=== PATIENT | female | born 1985 | race Caucasian/White ===

== ENCOUNTER 2017-02-20 12:35 | Observation (INO) | payer OTHER ==
[~2017-02-20] VITALS: Ht 162 cm; Wt 78.5 kg
[2017-02-20] MEDS ORDERED: PREN1TAB80 PO (13:10)
[2017-02-20] MEDS ORDERED: CALC-51 PO (13:11)
[2017-02-20 13:14] VITALS: BP 105/55
[2017-02-20 13:35] LABS: BASOPHILS % (AUTO) 1.3 % (0.0-2.0); EOSINOPHILS % (AUTO) 0.6 % (1.0-6.0); HEMATOCRIT 35.2 % (36-46); HEMOGLOBIN 12.1 g/dL (12.0-16.0); LYMPHOCYTES # (AUTO) 1.7 K/uL (1.0-4.8); LYMPHOCYTES % (AUTO) 21.4 % (22.0-44.0); MEAN CORPUSCULAR HEMOGLOBIN 31.7 pg (26.0-34.0); MEAN CORPUSCULAR HGB CONC 34.4 G/dL (31.0-37.0); MEAN CORPUSCULAR VOLUME 92 fL (80-100); MONOCYTES # (AUTO) 0.6 K/uL (0.1-1.0); MONOCYTES % (AUTO) 7.6 % (2.0-9.0); NEUTROPHILS # (AUTO) 5.4 K/uL (1.8-7.7); NEUTROPHILS % (AUTO) 69.1 % (40.0-70.0); RED BLOOD CELL COUNT(AUTO) 3.83 MIL/uL (4.00-5.20); RED CELL DISTRIBUTION WIDTH 13.2 % (11.5-14.5); WHITE BLOOD COUNT (AUTO) 7.9 K/uL (4.5-11.0)
[2017-02-20 13:47] LABS: ANION GAP 9 mmol/L (8-16); CALCIUM, TOTAL 8.8 mg/dL (8.8-10.5); CARBON DIOXIDE 24 mmol/L (22-29); CHLORIDE 104 mmol/L (98-107); CREATININE 0.66 mg/dL (0.60-1.30); GLOMERULAR FILTR. RATE CALC > 60 mL/min (>60); POTASSIUM 3.9 mmol/L (3.5-5.1); SODIUM SERUM 137 mmol/L (136-145); UREA NITROGEN, BLOOD 4 mg/dL (7-18)
[2017-02-20 13:54] LABS: ALANINE AMINOTRANSFERASE 17 U/L (12-78); ALBUMIN 2.6 g/dL (3.4-5.0); ASPARTATE AMINOTRANSFERASE 16 U/L (15-37); BILIRUBIN,TOTAL 0.5 mg/dL (0.1-1.0); TOTAL PROTEIN, SERUM 6.1 g/dL (6.4-8.2); URIC ACID 2.6 mg/dL (2.6-7.2)
== END 2017-02-20 14:30 | disposition home or self-care (01) ==
LOC: 4S 12:35
PROVIDERS: ADMIT Obstetrics & Gynecology; ATTEND Obstetrics & Gynecology
DX: O13.3 Gestational [pregnancy-induced] hypertension without significant proteinuria, third trimester (principal); Z3A.35 35 weeks gestation of pregnancy
CPT/HCPCS: 36415; 59025; 80053; 84550; 85025; G0378

== ENCOUNTER 2017-03-15 09:40 | Inpatient (IN) | payer OTHER ==
[~2017-03-15] VITALS: Ht 162 cm; Wt 79.4 kg
[~2017-03-15 09:40] MED LIST: CALC-51 PO; PREN1TAB80 PO
[2017-03-15] MEDS ORDERED: RINGERS SOLUTION,LACTATED 1,000 ML IV ONE (09:43)
[2017-03-15] MEDS ORDERED: CITRIC ACID/SODIUM CITRATE 30 ML SOLUTION UDCUP PO ONE (09:45)
[2017-03-15] MEDS ORDERED: METOCLOPRAMIDE HCL 5 MG/ML 2 ML VIAL IVP ONE (09:45)
[2017-03-15 10:08] LABS: BASOPHILS % (AUTO) 0.3 % (0.0-2.0); EOSINOPHILS % (AUTO) 0.9 % (1.0-6.0); HEMATOCRIT 38.6 % (36-46); HEMOGLOBIN 13.3 g/dL (12.0-16.0); LYMPHOCYTES # (AUTO) 1.6 K/uL (1.0-4.8); LYMPHOCYTES % (AUTO) 22.2 % (22.0-44.0); MEAN CORPUSCULAR HEMOGLOBIN 31.4 pg (26.0-34.0); MEAN CORPUSCULAR HGB CONC 34.3 G/dL (31.0-37.0); MEAN CORPUSCULAR VOLUME 91 fL (80-100); MONOCYTES # (AUTO) 0.6 K/uL (0.1-1.0); MONOCYTES % (AUTO) 8.4 % (2.0-9.0); NEUTROPHILS # (AUTO) 4.8 K/uL (1.8-7.7); NEUTROPHILS % (AUTO) 68.2 % (40.0-70.0); PLATELET COUNT (AUTO) 204 K/uL (150-450); RED BLOOD CELL COUNT(AUTO) 4.23 MIL/uL (4.00-5.20); RED CELL DISTRIBUTION WIDTH 13.8 % (11.5-14.5)
[2017-03-15 10:09] VITALS: BP 107/66
[2017-03-15] MEDS ORDERED: FentaNYL CITRATE-PF 100 MCG/2 ML VIAL IVP PRN ×4 (10:45)
[2017-03-15] MEDS ORDERED: MEPERIDINE-PF 25 MG/ML SYRINGE IVP PRN (10:45)
[2017-03-15] MEDS ORDERED: PROMETHAZINE HCL 12.5 MG in SODIUM CHLORIDE 0.9% 50 ML IV PRN (10:45)
[2017-03-15] MEDS ORDERED: DEXAMETHASONE SOD PHOS 4 MG/ML VIAL IVP PRN (10:45)
[2017-03-15] MEDS ORDERED: ONDANSETRON HCL 4 MG/2 ML VIAL IVP PRN ×2 (10:45)
[2017-03-15] MEDS ORDERED: NALBUPHINE HCL 10 MG/ML VIAL IVP PRN ×2 (10:45)
[2017-03-15] MEDS ORDERED: NALOXONE HCL 0.4 MG/ML VIAL IVP PRN (10:45)
[2017-03-15] MEDS ORDERED: DiphenhydrAMINE HCL 50 MG/ML VIAL IVP PRN (10:45)
[2017-03-15] MEDS ORDERED: ACETAMINOPHEN/CODEINE 300-30 MG TABLET PO PRN ×2 (12:15)
[2017-03-15] MEDS ORDERED: LANOLIN 7 GM OINTMENT TP PRN (12:15)
[2017-03-15] MEDS ORDERED: FentaNYL CITRATE-PF 100 MCG/2 ML VIAL ONE (12:39)
[2017-03-15] MEDS ORDERED: MORPHINE SULFATE/PF 1 MG/ML 10 ML AMP ONE (12:40)
[2017-03-15] MEDS: DiphenhydrAMINE HCL 50 MG/ML VIAL IVP PRN (14:49)
[2017-03-15] MEDS: NALBUPHINE HCL 10 MG/ML VIAL IVP PRN ×2 (15:51→21:22)
[2017-03-15] MEDS: DEXTROSE 5%-0.45% SODIUM CHL 1,000 ML IV SCH ×2 (18:32→22:09)
[2017-03-15] MEDS ORDERED: OXYGEN THERAPY IH SCH ×4 (20:00)
[2017-03-15] MEDS ORDERED: EPHEDrine SULFATE 50 MG/ML VIAL IM ONE (23:57)
[2017-03-15] MEDS ORDERED: OXYTOCIN 10 UNITS/ML VIAL IM ONE (23:57)
[2017-03-15] MEDS ORDERED: PHENYLEPHRINE HCL 10 MG/ML VIAL IVP ONE (23:57)
[2017-03-15] MEDS ORDERED: KETOROLAC TROMETHAMINE 60 MG/2 ML VIAL IM ONE (23:57)
[2017-03-16] MEDS ORDERED: DEXTROSE 5%-0.45% SODIUM CHL 1,000 ML IV ONE ×2 (01:26→05:29)
[2017-03-16] MEDS: DEXTROSE 5%-0.45% SODIUM CHL 1,000 ML IV SCH ×2 (02:07→05:44)
[2017-03-16] MEDS: IBUPROFEN 800 MG TABLET PO SCH ×4 (04:06→21:58)
[2017-03-16] MEDS: DiphenhydrAMINE HCL 50 MG/ML VIAL IVP PRN (04:13)
[2017-03-16] MEDS ORDERED: MEASLES/MUMPS/RUBELLA VACCINE, LIVE 0.5 ML/VIAL SQ ONE (06:15)
[2017-03-16] MEDS: NALBUPHINE HCL 10 MG/ML VIAL IVP PRN (06:56)
[2017-03-16] MEDS: MAGNESIUM HYDROXIDE SUSPENSION 30 ML UDCUP PO SCH (20:50)
[2017-03-17] MEDS: IBUPROFEN 800 MG TABLET PO SCH ×4 (03:59→21:51)
[2017-03-17 09:01] LABS: BASOPHILS % (AUTO) 0.3 % (0.0-2.0); EOSINOPHILS % (AUTO) 1.2 % (1.0-6.0); HEMATOCRIT 34.7 % (36-46); HEMOGLOBIN 11.8 g/dL (12.0-16.0); LYMPHOCYTES # (AUTO) 1.2 K/uL (1.0-4.8); LYMPHOCYTES % (AUTO) 15.3 % (22.0-44.0); MEAN CORPUSCULAR HEMOGLOBIN 31.3 pg (26.0-34.0); MEAN CORPUSCULAR VOLUME 92 fL (80-100); MONOCYTES # (AUTO) 0.7 K/uL (0.1-1.0); MONOCYTES % (AUTO) 8.7 % (2.0-9.0); NEUTROPHILS # (AUTO) 5.8 K/uL (1.8-7.7); NEUTROPHILS % (AUTO) 74.5 % (40.0-70.0); RED BLOOD CELL COUNT(AUTO) 3.78 MIL/uL (4.00-5.20); RED CELL DISTRIBUTION WIDTH 13.7 % (11.5-14.5); WHITE BLOOD COUNT (AUTO) 7.7 K/uL (4.5-11.0)
[2017-03-17] MEDS: MAGNESIUM HYDROXIDE SUSPENSION 30 ML UDCUP PO SCH ×2 (09:51→21:47)
[2017-03-18] MEDS: IBUPROFEN 800 MG TABLET PO SCH ×2 (04:27→10:01)
[2017-03-18] MEDS ORDERED: IBUP-1547 PO (11:14)
== END 2017-03-18 11:40 | disposition home or self-care (01) | DRG 766 ==
LOC: OBSVTOIN 09:40 → 4S 09:40
PROVIDERS: ADMIT Obstetrics & Gynecology; ATTEND Obstetrics & Gynecology
PROC: 10D00Z1 Extraction of Products of Conception, Low, Open Approach (ICD-10-PCS; principal; 2017-03-15)
PROC: 3E0134Z Introduction of Serum, Toxoid and Vaccine into Subcutaneous Tissue, Percutaneous Approach (ICD-10-PCS; 2017-03-16)
DX: O34.211 Maternal care for low transverse scar from previous cesarean delivery (principal); O69.81X0 Labor and delivery complicated by cord around neck, without compression, not applicable or unspecified; Z3A.39 39 weeks gestation of pregnancy; Z37.0 Single live birth; Z23 Encounter for immunization
CPT/HCPCS: 86850; 86900; 86901; 87081; 90707; J1200; J1885; J2300; J2370; J2590; J2765; J3010; J3490